=== PATIENT | male | born 1940 | race Caucasian/White ===

== ENCOUNTER → 2020-01-03 | Outpatient (REF) | payer SELFPAY ==
[~2020-01-03] MED LIST: AMLO1TAB24 PO; ASPI81CH33 PO; CARV25TA PO; FLOM0.4C39 PO; LEVO-92 PO; VITAMIN 2 PO
[2020-02-01 04:29] LABS: APPEARANCE, URINE TURBID (CLEAR); BACTERIA, URINE AUTO NEGATIVE (NEGATIVE); BILIRUBIN, URINE AUTO NEGATIVE (NEGATIVE); BLOOD, URINE BLOOD 1+ (NEGATIVE); COLOR, URINE YELLOW (YELLOW); GLUCOSE, URINE (UA) AUTO NEGATIVE (NEGATIVE); KETONE, URINE AUTO NEGATIVE (NEGATIVE); LEUKOCYTE ESTERASE, URINE AUTO 3+ (NEGATIVE); NITRITE, URINE AUTO NEGATIVE (NEGATIVE); PROTEIN, URINE AUTO 1+ mg/dL (NEGATIVE); RBC, URINE AUTO 31 /HPF (0-3); SPECIFIC GRAVITY URINE AUTO 1.011 (1.002-1.035); SQUAMOUS EPITHELIAL CELL UR AU 0 /HPF (0-6); UROBILINOGEN, URINE AUTO 0.2 mg/dL (0.0-2.0); WBC, URINE AUTO TNTC /HPF (0-3)
== END ==
LOC: M SMT 14:37
PROVIDERS: ATTEND Nurse Practitioner Women's Health
DX: N32.89 Other specified disorders of bladder (principal)

== ENCOUNTER 2020-02-10 07:35 | Day surgery (SDC) | payer MEDICARE ==
[~2020-02-10] VITALS: Ht 167.6 cm; Wt 80.5 kg
[2020-02-10] VITALS (8 sets, daily range): BP systolic 132–139; BP diastolic 75–78
[~2020-02-10 07:35] MED LIST changes: -AMLO1TAB24 PO; -ASPI81CH33 PO; -CARV25TA PO; -FLOM0.4C39 PO; -LEVO-92 PO; +LR 1,000 ML IV ONE; -VITAMIN 2 PO; +ceFAZolin SOD 2 GM in IV 1 EA IV ONE
[2020-02-10] MEDS ORDERED: MIDAZOLAM INJ 2MG/2ML VIAL (J2250 PER 1MG) As Ordered ONE (07:48)
[2020-02-10] MEDS ORDERED: ONDANSETRON 4MG/2ML VIAL As Ordered ONE (07:49)
[2020-02-10] MEDS ORDERED: fentaNYL 250 MCG/5 ML INJECTION (J3010) As Ordered ONE (07:49)
[2020-02-10] MEDS ORDERED: dexameTHASONE 4 MG/ML 1ML VIAL (J1100 PER 1MG) As Ordered ONE (07:49)
[2020-02-10] MEDS ORDERED: propofoL 200 MG/20 ML VIAL As Ordered ONE (07:50)
[2020-02-10] MEDS ORDERED: LIDOCAINE 2% 100MG/5ML SDV (FOR ANES.) As Ordered ONE (07:50)
[2020-02-10] MEDS ORDERED: ROCURONIUM BROMIDE 50 MG/5 ML VIAL As Ordered ONE (07:50)
[2020-02-10] MEDS ORDERED: ACETAMINOPHEN 1000MG 100ML IV BTL (OFIRMEV) (J0131 PER 10MG) As Ordered ONE ×2 (07:56→09:38)
[2020-02-10] MEDS ORDERED: VITAMIN 2 PO (08:31)
[2020-02-10] MEDS ORDERED: ASPI81CH33 PO (08:31)
[2020-02-10] MEDS ORDERED: AMLO1TAB24 PO (08:31)
[2020-02-10] MEDS ORDERED: CARV25TA PO (08:31)
[2020-02-10] MEDS ORDERED: LEVO-92 PO (08:31)
[2020-02-10] MEDS ORDERED: FLOM0.4C39 PO (08:31)
[2020-02-10] MEDS ORDERED: PHENYLephrine HCL 500 MCG/5 ML (100MCG/ML) SYRINGE (J2370) As Ordered ONE (09:30)
[2020-02-10] MEDS ORDERED: ePHEDrine SULFATE 25 MG/5 ML(5MG/ML) SYRINGE As Ordered ONE (09:30)
[2020-02-10] MEDS ORDERED: ONDANSETRON 4MG/2ML VIAL IV PRN (11:00)
[2020-02-10] MEDS ORDERED: oxyCODONE 5MG TAB PO PRN (11:00)
[2020-02-10] MEDS ORDERED: LR 1,000 ML IV SCH ×2 (11:00→11:15)
[2020-02-10] MEDS ORDERED: fentaNYL 100 MCG/2 ML INJECTION (J3010) IV PRN (11:00)
[2020-02-10] MEDS ORDERED: BELLADONNA 16.2mg/OPIUM 60mg 1 EA SUPP PR PRN (11:15)
[2020-02-11 02:00] VITALS: BP 110/64
[2020-02-11 06:00] VITALS: BP 120/67
--- NOTE | 2020-02-11 07:56 | DS.PDOC ---
Discharge Summary General Date of Admission 02/10/20 Date of Discharge 02/11/20 Discharge Summary PROCEDURES PERFORMED DURING STAY: TURP ADMITTING DIAGNOSES: 1. BPH with obstruction DISCHARGE DIAGNOSES: 1. BPH with obsruction COMPLICATIONS/CHIEF COMPLAINT: Benign Prostatic Hyperplasia. HISTORY OF PRESENT ILLNESS: Obstructive uroopathy. Admitted for TURP HOSPITAL COURSE: Pt tolerated surgery and is tolerating ruth. Urine is clear. DISCHARGE MEDICATIONS: Please see below. ALLERGIES: Please see below. PHYSICAL EXAMINATION ON DISCHARGE: VITAL SIGNS: Please see below. GENERAL: Alert, comfortable, oriented HEENT: WNL NECK: WNL CARDIOVASCULAR EXAMINATION: WNL RESPIRATORY EXAMINATION: WNL ABDOMINAL EXAMINATION: WNL EXTREMITIES: WNL SKIN: WNL NEUROLOGICAL EXAMINATION: WNL PSYCHIATRIC EXAMINATION: WNL LABORATORY DATA: Please see below. IMAGING: PROGNOSIS: Good ACTIVITY: [As tolerated]. DIET: Regular DISCHARGE PLAN: Home today DISPOSITION: . DISCHARGE INSTRUCTIONS: 1. Hydrate and followup in office in one week ITEMS TO FOLLOWUP ON ON OUTPATIENT: 1. . DISCHARGE CONDITION: [Stable]. TIME SPENT ON DISCHARGE: Greater than 45 minutes. Vital Signs/I&Os Vital Signs Date Time Temp Pulse Resp B/P (MAP) Pulse Ox O2 Delivery O2 Flow Rate FiO2 02/11/20 06:00 97.8 73 16 120/67 (84) 97 Room Air 02/10/20 10:37 10 I&O- Last 24 Hours up to 6 AM 02/11/20 06:00 Intake Total 3370 ml Output Total 3800 ml Balance -430 ml Discharge Medications Scheduled Amlodipine Besylate (Amlodipine Besylate) 5 Mg Tablet, 5 MG PO DAILY, (Reported) Aspirin (Aspirin) 81 Mg Tab.chew, 81 MG PO DAILY, (Reported) Carvedilol (Carvedilol) 25 Mg Tablet, 25 MG PO BID, (Reported) Levothyroxine Sodium (Levo-T) 125 Mcg Tablet, 125 MCG PO DAILY, (Reported) Tamsulosin HCl (Flomax) 0.4 Mg Capsule, 0.4 MG PO DAILY, (Reported) [Vitamin 2] , 2,000 PO DAILY, (Reported) Allergies Coded Allergies: lisinopril (Verified Allergy, Unknown, 02/07/20) RADHA CARDENAS MD Feb 11, 2020 07:56
--- NOTE | 2020-02-24 12:59 | RO ---
DATE OF OPERATION: 02/10/2020 PREOPERATIVE DIAGNOSIS: Benign prostatic hypertrophy (BPH) with obstruction. POSTOPERATIVE DIAGNOSIS: Benign prostatic hypertrophy (BPH) with obstruction. PROCEDURE: Transurethral resection (TUR) of prostate. SURGEON: Lloyd Torres MD ANESTHESIA: General. INDICATION FOR OPERATION: This is a 79-year-old, white male with obstructive uropathy from BPH. He is, therefore, brought to the operating room for TUR of prostate when he did not respond well to medications. DESCRIPTION OF OPERATION: The patient was anesthetized with general anesthesia, placed in lithotomy position, prepped with Betadine paint, draped in an aseptic manner and timeout was performed. A continuous flow resectoscope was then inserted into the meatus and advanced under direct vision of a 30-degree lens to the bladder. The bladder had very flaccid bladder herrera. The ureteral orifices were in the normal anatomic position and the patient had a very large median lobe. The button was then used to ablate the median lobe and the loop was then used to resect the area around the bladder neck. The left and right lateral lobes; the anterior floor of the prostate. Hemostasis was achieved with cauterization with the button and chips were then irrigated out of the bladder. Re-inspection showed good hemostasis and no chips remaining. The resectoscope was then removed and the patient was catheterized with a 24-Hungarian three-way Pickering catheter over a wire guide. The balloon was then inflated with 45 mL of sterile water, connected to closed drainage and continuous bladder irrigation, and taped to the right leg. The patient was then awakened and sent to the recovery room in stable condition having tolerated the procedure well. PASCALE
== END 2020-02-11 09:54 | disposition home or self-care (01) ==
LOC: M SDC 07:35 → M MSPAV 12:14 → M SDC 02-11 09:54
PROVIDERS: ATTEND Urology
DX: C61 Malignant neoplasm of prostate (principal); Z88.8 Allergy status to other drugs, medicaments and biological substances; Z79.82 Long term (current) use of aspirin
CPT/HCPCS: 52601; 88305; 96360; 96361; J0131; J1100; J2250; J2370; J2405; J3010

== ENCOUNTER → 2020-03-10 | Outpatient (CLI) | payer MEDICARE, SELFPAY ==
[~2020-03-10] MED LIST changes: +AMLO1TAB24 PO; +ASPI81CH33 PO; +CARV25TA PO; +FLOM0.4C39 PO; +LEVO-92 PO; -LR 1,000 ML IV ONE; +VITAMIN 2 PO; -ceFAZolin SOD 2 GM in IV 1 EA IV ONE
--- NOTE | 2020-03-13 09:50 | REPPI ---
PROSTATE BIOPSY ULTRASOUND: 03/10/20. CLINICAL: History of prostate cancer. TECHNIQUE: Transrectal ultrasound examination of the prostate gland. FINDINGS: The prostate gland is heterogenous and measures 3.9 x 2.4 x 4.3cm (21cc). A few scattered cyst and calcifications are noted without solitary focal mass lesion identified. Biopsy performed by Dr. Proctor without complications. IMPRESSION: Heterogenous prostate gland without solitary nodules. Prostate biopsy performed without complications. MTDD
== END ==
LOC: M SMT PRO 09:45
PROVIDERS: ATTEND Urology
DX: C61 Malignant neoplasm of prostate (principal)
CPT/HCPCS: 55700; 76872; 76942; 88341; 88342; G0416